=== PATIENT | male | born 1970 | race Caucasian/White ===

== ENCOUNTER 2018-07-11 20:27 | Emergency (ER) | payer BC, OTHER ==
[~2018-07-11] VITALS: Ht 188 cm; Wt 105.5 kg
[2018-07-11 20:31] VITALS: BP 147/82
== END 2018-07-11 21:45 | disposition home or self-care (01) ==
LOC: ED 21:37
DX: S92.415A Nondisplaced fracture of proximal phalanx of left great toe, initial encounter for closed fracture (principal); W22.8XXA Striking against or struck by other objects, initial encounter; Y93.89 Activity, other specified; Y99.8 Other external cause status; Y92.009 Unspecified place in unspecified non-institutional (private) residence as the place of occurrence of the external cause
CPT/HCPCS: 99284